=== PATIENT | female | born 1935 | race Caucasian/White ===

== ENCOUNTER 2016-11-18 07:25 | Emergency (ER) | payer OTHER ==
[~2016-11-18] VITALS: Ht 165.1 cm; Wt 84.0 kg
[~2016-11-18 07:25] MED LIST: AMLO5TAB4 PO; LANT3I SC; LEVO100T87 PO; METO100T13 PO; NOVO3I SC; PANT40TA3 PO; RAMI10CA48 PO
[2016-11-18 07:29] VITALS: Ht 165.1 cm; Wt 84.0 kg
--- NOTE | 2016-11-18 08:45 | ERD ---
ER Documentation Chief Complaint Date/Time DATE: 11/18/16 TIME: 08:42 Chief Complaint LOWER ABD PAIN X2 YEARS, REFLUX HPI Patient is a 81-year-old female who presents to the ER with gradual onset, constant, severe lower abdominal pain for 2 years. She states that she has been taking [place] but it is not helping. She states that she had a pelvic ultrasound that showed fibroids, and that she was referred to an VACCINATOR, but has had difficulty arranging follow-up. She states that she saw her PMD last week for the same symptoms, but has not had any improvement. She denies vomiting, diarrhea, constipation, dysuria, fever. She denies any acute change in her symptoms. She states that she has not been eating well. ROS All systems reviewed and are negative except as per history of present illness. Medications Home Meds Active Scripts Polyethylene Glycol* (Miralax*) 17 Gm Powd.pack, 17 GM PO DAILY, #7 Prov:LISA THOMPSON MD 11/18/16 Reported Medications Insulin Regular, Human (Humulin R) 100 Unit/1 Ml Vial, 10 UNIT IJ TID, VIAL 11/18/16 Insulin Glargine* (Lantus*) 100 Unit/Ml Soln, 20 UNIT SC QHS, #1 VIAL 12/11/15 Metoprolol Succinate* (Toprol XL*) 100 Mg Tab.sr.24h, 100 MG PO DAILY, #30 TAB 12/11/15 Amlodipine Besylate* (Norvasc*) 5 Mg Tablet, 5 MG PO DAILY, TAB 01/07/15 Ramipril (Ramipril) 10 Mg Capsule, 10 MG PO DAILY, CAP 01/27/14 Levothyroxine Sodium* (Levothyroxine Sodium*) 100 Mcg Tablet, 100 MCG PO DAILY 04/01/12 Discontinued Reported Medications Insulin Aspart* (Novolog Insulin Pen*) 100 Unit/Ml Soln, 10 UNIT SC WITH MEALS, EA 12/11/15 Discontinued Scripts Pantoprazole* (Protonix*) 40 Mg Tablet.dr, 40 MG PO DAILY for 30 Days, TAB 2 Refills Prov:VIC KOHLER 12/13/15 Allergies Allergies: Coded Allergies: aspirin (Verified Allergy, Mild, RASH, 12/11/15) codeine (Verified Allergy, Mild, rash, 12/11/15) hydrocodone (Verified Allergy, Mild, rash, 12/11/15) ibuprofen (Verified Allergy, Unknown, 12/11/15) acetaminophen (Verified Adverse Reaction, Mild, GI UPSET, 12/11/15) PMhx/Soc Past medical history: Diabetes mellitus, hypertension, chronic abdominal pain, hypothyroidism Past surgical history: Knee replacement, hip replacement Social history: Denies tobacco or alcohol History of Surgery: Yes (R knee sx 2013) Anesthesia Reaction: No Hx Neurological Disorder: No Hx Respiratory Disorders: No Hx Cardiac Disorders: Yes (HTN) Hx Psychiatric Problems: No Hx Miscellaneous Medical Probl: No Hx Alcohol Use: No Hx Substance Use: No Hx Tobacco Use: No FmHx Family History: No coronary disease, No diabetes Physical Exam Vitals Vital Signs Date Time Temp Pulse Resp B/P Pulse Ox O2 Delivery O2 Flow Rate FiO2 11/18/16 07:29 98.4 88 17 206/87 94 Physical Exam Const: Alert, irritable Head: Atraumatic Eyes: Normal Conjunctiva, no pallor, no icterus ENT: Normal External Ears, Nose and Mouth. Tacky mucous membranes Neck: Full range of motion..~ No meningismus. Resp: Clear to auscultation bilaterally, no wheezes, no rales Cardio: Regular rate and rhythm, no murmurs Abd: Soft, non tender, non distended. No guarding or rebound. No palpable or pulsatile mass. Skin: No petechiae or rashes Back: No midline or flank tenderness Ext: No cyanosis, or edema Neur: Awake and alert, cranial nerves II through XII intact bilaterally, strength and sensation full in 4 extremities. Psych: Irritable, agitated. No responding to internal stimuli. Result Diagram: 11/18/16 0850 11/18/16 0850 Results 24 hrs Laboratory Tests Test 11/18/16 08:50 White Blood Count 9.510^3/ul Red Blood Count 5.1310^6/ul Hemoglobin 14.6g/dl Hematocrit 43.2% Mean Corpuscular Volume 84.2fl Mean Corpuscular Hemoglobin 28.5pg Mean Corpuscular Hemoglobin Concent 33.8g/dl Red Cell Distribution Width 13.6% Platelet Count 26989^3/UL Mean Platelet Volume 10.6fl Neutrophils % 68.2% Lymphocytes % 16.2% Monocytes % 12.4% Eosinophils % 2.4% Basophils % 0.5% Nucleated Red Blood Cells % 0.0/100WBC Neutrophils # 6.510^3/ul Lymphocytes # 1.510^3/ul Monocytes # 1.210^3/ul Eosinophils # 0.210^3/ul Basophils # 0.110^3/ul Nucleated Red Blood Cells # 0.010^3/ul Urine Color LT. YELLOW Urine Clarity CLEAR Urine pH 5.5 Urine Specific [place] 1.015 Urine Ketones NEGATIVE Urine Nitrite NEGATIVE Urine Bilirubin NEGATIVE Urine Urobilinogen 0.2 E.U./dL Urine Leukocyte Esterase TRACE Urine Microscopic RBC 2-5/HPF Urine Microscopic WBC 2-5/HPF Urine Squamous Epithelial Cells FEW Urine Bacteria FEW Urine Hemoglobin 1+ Urine Glucose NEGATIVE% Urine Total Protein NEGATIVE Sodium Level 139mmol/L Potassium Level 3.8mmol/L Chloride Level 102mmol/L Carbon Dioxide Level 26mmol/L Anion Gap 15 Blood Urea Nitrogen 15mg/dl Creatinine 0.69mg/dl Glucose Level 84mg/dl Calcium Level 9.1mg/dl Total Bilirubin 0.3mg/dl Direct Bilirubin 0.00mg/dl Indirect Bilirubin 0.3mg/dl Aspartate Amino Transf (AST/SGOT) 24IU/L Alanine Aminotransferase (ALT/SGPT) 31IU/L Alkaline Phosphatase 76IU/L Total Protein 7.9g/dl Albumin 5.0g/dl Globulin 2.90g/dl Albumin/Globulin Ratio 1.72 Lipase 134U/L Procedures/MDM MDM: Patient is a 81-year-old female who presents with 2 years of abdominal pain. The patient denies any acute change in symptoms, but is agitated that she has not been able to get follow-up with her doctors. However, she reports that she saw the doctor street commissioner for her doctor within the last week. The patient has a completely benign abdominal exam, normal labs and UA. She brings a report of the pelvic ultrasound that shows a 1 cm uterine fibroid and an 8 mm endometrial stripe. She reports not having follow-up scheduled with VACCINATOR. She is not experiencing vaginal bleeding. She reports not eating well, but has no electrolyte abnormalities or ketosis. She has not had any vomiting. A KUB shows a large amount of stool in the right colon. I spoke with Dr. Hawthorne, her primary physician, and he stated that he would be happy to see her in the clinic tomorrow morning. The patient states that she will not go to the clinic in the morning because "I am not even alive in the morning, and I have to do things like cooking." The patient is alert and oriented, and is able to exhibit capacity for self-care. She lives alone and states that she is able to complete her ADLs. I suspect that there is a behavioral component to her interactions with healthcare providers that is impairing her ability to get outpatient care. On a previous admission, she was noted to demand early discharge prior to completion of her workup, after she had been admitted due to not being willing to have a workup done as an outpatient. I have advised the patient to stop taking [place], as this may contribute to her constipation, and to take MiraLAX. I suspect that her pain may be due to underlying constipation as well as possible uterine fibroid. There are no features that are concerning for acute appendicitis, diverticulitis, cholecystitis, aortic pathology. I advised the patient of her appointment tomorrow and encouraged her to go to it. There is no indication for admission to the hospital at this time. Departure Diagnosis: Primary Impression: Abdominal pain Abdominal location: lower abdomen, unspecified Qualified Code: R10.30 - Lower abdominal pain Additional Impression: Constipation Constipation type: unspecified constipation type Qualified Code: K59.00 - Constipation, unspecified constipation type Condition: LISA Bashir MD Nov 18, 2016 08:45
[2016-11-18 09:04] LABS: ADD SCAN DIFF NO
[2016-11-18 09:09] LABS: ADD UMIC YES; UR BILIRUBIN (Dip) NEGATIVE (NEGATIVE); UR BLOOD (Dip) 1+ (NEGATIVE); UR CLARITY CLEAR (CLEAR); UR COLOR LT. YELLOW (YELLOW); UR GLUCOSE (Dip) NEGATIVE (NEGATIVE); UR KETONES (Dip) NEGATIVE (NEGATIVE); UR LEUKOCYTE ESTERASE (Dip) TRACE (NEGATIVE); UR NITRITE (Dip) NEGATIVE (NEGATIVE); UR TOTAL PROTEIN (Dip) NEGATIVE (NEGATIVE); UR UROBILINOGEN (Dip) 0.2 E.U./dL (0.1-1.0)
[2016-11-18] MEDS ORDERED: INSU100V3 IJ (09:12)
[2016-11-18 09:13] LABS: BASOPHIL # 0.1 10^3/ul (0.0-0.1); BASOPHILS % 0.5 % (0.0-2.0); EOSINOPHILS # 0.2 10^3/ul (0.0-0.5); EOSINOPHILS % 2.4 % (0.0-7.0); HEMATOCRIT 43.2 % (37.0-47.0); HEMOGLOBIN 14.6 g/dl (12.0-16.0); LYMPHOCYTES # 1.5 10^3/ul (0.8-2.9); LYMPHOCYTES % 16.2 % (15.0-51.0); MEAN CORPUSCULAR HEMOGLOBIN 28.5 pg (29.0-33.0); MEAN CORPUSCULAR HGB CONC 33.8 g/dl (32.0-37.0); MEAN CORPUSCULAR VOLUME 84.2 fl (82.0-101.0); MEAN PLATELET VOLUME 10.6 fl (7.4-10.4); MONOCYTE # 1.2 10^3/ul (0.3-0.9); MONOCYTES % 12.4 % (0.0-11.0); NEUTROPHIL # 6.5 10^3/ul (1.6-7.5); NEUTROPHILS % 68.2 % (39.0-77.0); PLATELET COUNT 268 10^3/UL (140-415); RED BLOOD COUNT 5.13 10^6/ul (4.20-5.40); RED CELL DISTRIBUTION WIDTH 13.6 % (11.5-14.5); WHITE BLOOD COUNT 9.5 10^3/ul (4.8-10.8)
[2016-11-18 09:23] LABS: UR BACTERIA FEW; UR SQUAMOUS EPITHELIAL CELL FEW
[2016-11-18 09:31] LABS: ALBUMIN/GLOBULIN RATIO 1.72; BILIRUBIN,INDIRECT 0.3 mg/dl (0-1.1); BILIRUBIN,TOTAL 0.3 mg/dl (0.2-1.3); CALCIUM 9.1 mg/dl (8.4-10.2); CREATININE 0.69 mg/dl (0.44-1.00); POTASSIUM 3.8 mmol/L (3.5-5.1); TOTAL PROTEIN 7.9 g/dl (6.1-8.1)
--- NOTE | 2016-11-18 10:41 | RADRPT ---
PROCEDURE: XR Abdomen 1 View. CLINICAL INDICATION: Abdominal pain TECHNIQUE: AP abdomen x-ray. COMPARISON: CT December 11, 2015 FINDINGS: Large amount of formed stool is seen in the right colon and transverse colon. No dilated loops of s mall bowel are observed. No organomegaly is identified. Multiple phleboliths are seen in the pelvis. Cholecystectomy clips are noted in the right upper quadrant. Degenerative changes are seen in the lower lumbar spine. Bilateral hip replacements are observed. IMPRESSION: Large amount of formed stool in the right colon and transverse colon suggesting constipation. If further characterization of the abdomen is needed CT should be considered. RPTAT: AA .Jesus Small MD, MD Date Time Electronically viewed and signed by .Jesus Small MD, on 11/18/2016 10:41 .P/
[2016-11-18] MEDS ORDERED: POLY17PO6 PO (11:11)
[2016-11-18 11:46] VITALS: BP 148/74; PULSE 86; RESP 20; TEMP 98.3
== END 2016-11-18 11:47 | disposition home or self-care (01) ==
LOC: E/R 07:25
DX: R10.30 Lower abdominal pain, unspecified (principal); K59.00 Constipation, unspecified; E11.9 Type 2 diabetes mellitus without complications; I10 Essential (primary) hypertension; E03.9 Hypothyroidism, unspecified; Z79.4 Long term (current) use of insulin; Z96.659 Presence of unspecified artificial knee joint; Z96.649 Presence of unspecified artificial hip joint
CPT/HCPCS: 36415; 74000; 80053; 81001; 83690; 85025

== ENCOUNTER 2018-03-16 06:55 | Emergency (ER) | END 2018-03-16 12:37 | disposition home or self-care (01) ==

== ENCOUNTER 2019-01-11 06:30 | Emergency (ER) | payer OTHER ==
[~2019-01-11] VITALS: Ht 162.6 cm; Wt 82.1 kg
[~2019-01-11 06:30] MED LIST changes: +CEPH-443 PO; +DOCU-144 PO; +INSU100V3 IJ; -LANT3I SC; +LEVEM SUBCUTANE; +LEVO100T8 PO; -LEVO100T87 PO; +METO-336 PO; -METO100T13 PO; -NOVO3I SC; -PANT40TA3 PO; +POLY17PO6 PO; +SENN-120 PO
[2019-01-11 06:35] VITALS: Ht 162.6 cm; Wt 82.1 kg
[2019-01-11] MEDS ORDERED: LIDOCAINE/MYLANTA 40 ML BTL PO ONE (07:00)
--- NOTE | 2019-01-11 08:51 | ERD ---
ER Documentation Chief Complaint Chief Complaint pelvic pain, burning, itching frequent urination > 4mths HPI Patient is a 83-year-old female with hypertension and diabetes who presents with abdominal pain. The patient says that she has "bladder and uterus pain". She said that it started years ago but it comes and goes. She has a history of the same in the past. She has had no treatment as of yet. Upon review of old medical record the patient has multiple visits for various complaints. She does not remember the name of her primary doctor. ROS All systems reviewed and are negative except as per history of present illness. Medications Home Meds Active Scripts Sennosides* (Senna Lax*) 8.6 Mg Tablet, 1 TAB PO DAILY, #30 TAB Prov:HILDA ARTHUR MD 01/11/19 Docusate Sodium* (Colace*) 100 Mg Capsule, 100 MG PO TID, #30 CAP Prov:HILDA ARTHUR MD 01/11/19 Cephalexin* (Keflex*) 500 Mg Capsule, 500 MG PO QID for 10 Days, CAP Prov:MALATHI NUÑEZ MD 03/16/18 Polyethylene Glycol* (Miralax*) 17 Gm Powd.pack, 17 GM PO DAILY, #7 Prov:LISA THOMPSON MD 11/18/16 Reported Medications Insulin Detemir (Levemir) 100 Unit/1 Ml Vial, 20 UNITS SUBCUTANE QHS 03/16/18 Insulin Regular, Human (Humulin R) 100 Unit/1 Ml Vial, 10 UNIT IJ TID, VIAL 11/18/16 Metoprolol Succinate* (Toprol XL*) 100 Mg Tab.sr.24h, 100 MG PO DAILY, #30 TAB 12/11/15 Amlodipine Besylate* (Norvasc*) 5 Mg Tablet, 5 MG PO DAILY, TAB 01/07/15 Ramipril (Ramipril) 10 Mg Capsule, 10 MG PO DAILY, CAP 01/27/14 Levothyroxine Sodium* (Levothyroxine Sodium*) 100 Mcg Tablet, 100 MCG PO DAILY 04/01/12 Allergies Allergies: Coded Allergies: aspirin (Verified Allergy, Mild, RASH, 03/16/18) codeine (Verified Allergy, Mild, rash, 03/16/18) hydrocodone (Verified Allergy, Mild, rash, 03/16/18) ibuprofen (Verified Allergy, Unknown, 03/16/18) acetaminophen (Verified Adverse Reaction, Mild, GI UPSET, 03/16/18) PMhx/Soc History of Surgery: No Anesthesia Reaction: No Hx Neurological Disorder: No Hx Respiratory Disorders: No Hx Cardiac Disorders: Yes (HTN) Hx Psychiatric Problems: No Hx Miscellaneous Medical Probl: Yes (CHRONIC PAIN, DM, HYPOTHYROIDISM) Hx Alcohol Use: No Hx Substance Use: No Hx Tobacco Use: No Smoking Status: Never smoker FmHx Family History: diabetes Physical Exam Vitals Vital Signs Date Temp Pulse Resp B/P (MAP) Pulse Ox O2 O2 Flow FiO2 Time Delivery Rate 01/11/19 97.8 89 18 153/75 97 06:35 (101) Physical Exam Const: No acute distress Head: Atraumatic Eyes: Normal Conjunctiva ENT: Normal External Ears, Nose and Mouth. Neck: Full range of motion. No meningismus. Resp: Clear to auscultation bilaterally Cardio: Regular rate and rhythm, no murmurs Abd: Soft, lower abdominal pain without rebound or guarding Skin: No petechiae or rashes Back: No midline or flank tenderness Ext: No cyanosis, or edema Neur: Awake and alert Psych: Normal Mood and Affect Result Diagram: 01/11/1958 01/11/1958 Results 24 hrs Laboratory Tests Test 01/11/19 06:58 White Blood Count 7.6 10^3/ul Red Blood Count 5.12 10^6/ul Hemoglobin 14.6 g/dl Hematocrit 43.4 % Mean Corpuscular Volume 84.8 fl Mean Corpuscular Hemoglobin 28.5 pg Mean Corpuscular Hemoglobin Concent 33.6 g/dl Red Cell Distribution Width 13.0 % Platelet Count 272 10^3/UL Mean Platelet Volume 9.5 fl Immature Granulocytes % 0.300 % Neutrophils % 61.9 % Lymphocytes % 18.8 % Monocytes % 14.6 % Eosinophils % 3.7 % Basophils % 0.7 % Nucleated Red Blood Cells % 0.0 /100WBC Immature Granulocytes # 0.020 10^3/ul Neutrophils # 4.7 10^3/ul Lymphocytes # 1.4 10^3/ul Monocytes # 1.1 10^3/ul Eosinophils # 0.3 10^3/ul Basophils # 0.1 10^3/ul Nucleated Red Blood Cells # 0.0 10^3/ul Urine Color STRAW Urine Clarity CLEAR Urine pH 6.0 Urine Specific [place] 1.006 Urine Ketones NEGATIVE mg/dL Urine Nitrite NEGATIVE mg/dL Urine Bilirubin NEGATIVE mg/dL Urine Urobilinogen NEGATIVE mg/dL Urine Leukocyte Esterase TRACE [place]/ul Urine Microscopic RBC 3 /HPF Urine Microscopic WBC 1 /HPF Urine Squamous Epithelial Cells FEW /HPF Urine Hemoglobin 1+ mg/dL Urine Glucose NEGATIVE mg/dL Urine Total Protein NEGATIVE mg/dl Sodium Level 138 mmol/L Potassium Level 3.8 mmol/L Chloride Level 102 mmol/L Carbon Dioxide Level 28 mmol/L Anion Gap 8 Blood Urea Nitrogen 16 mg/dl Creatinine 0.76 mg/dl Est Glomerular Filtrat Rate mL/min mL/min Glucose Level 151 mg/dl Calcium Level 9.2 mg/dl Total Bilirubin 0.4 mg/dl Direct Bilirubin 0.00 mg/dl Indirect Bilirubin 0.4 mg/dl Aspartate Amino Transf (AST/SGOT) 21 IU/L Alanine Aminotransferase (ALT/SGPT) 18 IU/L Alkaline Phosphatase 75 IU/L Total Protein 8.0 g/dl Albumin 4.6 g/dl Globulin 3.40 g/dl Albumin/Globulin Ratio 1.35 Lipase 75 U/L Current Medications Medications Dose Sig/Tonio Start Time Status Last (Trade) Ordered Route PRN Stop Time Admin Dose Reason Admin 40 ml ONCE ONCE 01/11/19 DC Miscellaneous PO 07:00 Medication 01/11/19 07:01 (Gi Cocktail (2)) Procedures/MDM CT abdomen pelvis shows constipation per radiology. Patient is an 83-year-old female who presents with abdominal pain. Laboratory studies are normal. Urinalysis shows no sign of infection. CT scan was negative for surgical process. She was found to have constipation. I will give her prescription for Colace and senna but she will need to follow-up closely with her primary doctor within 24 to 48 hours. She can return for any worsening symptoms. I doubt appendicitis, cholecystitis, pancreatitis, or bowel obstruction. Departure Diagnosis: Primary Impression: Abdominal pain Abdominal location: generalized Qualified Codes: R10.84 - Generalized abdominal pain Additional Impression: Constipation Constipation type: unspecified constipation type Qualified Codes: K59.00 - Constipation, unspecified Condition: Fair Patient Instructions: Abdominal Pain, Constipation (Adult) Referrals: Your doctor Additional Instructions: Call your primary care doctor TOMORROW for an appointment during the next 1-2 days.See the doctor sooner or return here if your condition worsens before your appointment time. HILDA ARTHUR MD Jan 11, 2019 08:51
[2019-01-11 09:00] VITALS: BP 138/78; PULSE 76; RESP 16
== END 2019-01-11 09:00 | disposition home or self-care (01) ==
LOC: E/R 06:30
DX: K59.00 Constipation, unspecified (principal); I10 Essential (primary) hypertension; E11.9 Type 2 diabetes mellitus without complications; E03.9 Hypothyroidism, unspecified; Z79.4 Long term (current) use of insulin
CPT/HCPCS: 36415; 71045; 74176; 80053; 81001; 83690; 85025